=== PATIENT | female | born 1970 | race Caucasian/White ===

== ENCOUNTER 2016-11-07 16:28 | Emergency (ER) | payer SELFPAY ==
[~2016-11-07] VITALS: Ht 160 cm; Wt 72.6 kg
--- NOTE | 2016-11-07 16:30 | NUR ---
Patient arrived in full C-Spine precautions with hard C-collar and backboard in place. ED MD notified.
--- NOTE | 2016-11-07 16:30 | NUR ---
PT GAYATRI S/P FALL INSIDE THE BUS. DENIES KO. COMPLAINS OF GENERALIZED PAIN. PT AAOX3. VSS. SAFETY AND COMFORT MEASURES PROVIDED. WILL MONITOR.
--- NOTE | 2016-11-07 16:40 | NUR ---
C-spine cleared by ER MD. Backboard removed. Patient able to move all extremities before and after backboard removal.
[2016-11-07] MEDS ORDERED: HYDROCODONE/APAP 5/325MG 1 EACH TABLET ONE (16:47)
[2016-11-07] MEDS ORDERED: HYDROCODONE/APAP 5/325MG 1 EACH TABLET PO ONE (17:00)
--- NOTE | 2016-11-07 17:00 | NUR ---
PT MEDICATED ORDERED.
--- NOTE | 2016-11-07 17:30 | NUR ---
PT TAKEN TO XRAY.
--- NOTE | 2016-11-07 18:23 | NUR ---
Patient discharged to home in stable condition. Written and verbal after care instructions given. Patient verbalizes understanding of instruction. Pt ambulatory with a steady gait.
[2016-11-07 18:24] VITALS: BP 119/76
== END 2016-11-07 18:25 | disposition home or self-care (01) ==
LOC: ER 16:30
DX: S20.211A Contusion of right front wall of thorax, initial encounter (principal); S70.01XA Contusion of right hip, initial encounter; S60.211A Contusion of right wrist, initial encounter; W01.198A Fall on same level from slipping, tripping and stumbling with subsequent striking against other object, initial encounter; Y93.89 Activity, other specified; Y92.89 Other specified places as the place of occurrence of the external cause; Y99.9 Unspecified external cause status
CPT/HCPCS: 72040; 72100; 72170; 73030; 73100; 99284; A4606; Z7610

== ENCOUNTER 2016-12-07 15:35 | Emergency (ER) | payer MEDICAID ==
[~2016-12-07] VITALS: Ht 162.6 cm; Wt 77.1 kg
[2016-12-07 15:54] VITALS: BP 128/88
[2016-12-07] MEDS ORDERED: ACETAMINOPHEN ES 500 MG TABLET ONE (16:12)
[2016-12-07] MEDS ORDERED: ACETAMINOPHEN ES 500 MG TABLET PO ONE (16:30)
== END 2016-12-07 16:54 | disposition home or self-care (01) ==
LOC: ER 15:36
DX: S30.0XXA Contusion of lower back and pelvis, initial encounter (principal); W17.89XA Other fall from one level to another, initial encounter; Y93.89 Activity, other specified; Y92.89 Other specified places as the place of occurrence of the external cause; Y99.8 Other external cause status
CPT/HCPCS: A4606; Z7610